=== PATIENT | male | born 1970 | race Caucasian/White ===

== ENCOUNTER 2022-02-07 07:57 | Outpatient (CLI) | payer OTHER ==
[2022-02-07] MEDS ORDERED: Iopamidol 300 61% 100 ML VIAL FS ONE (08:51)
== END 2022-02-07 07:58 | disposition home or self-care (01) ==
LOC: CSHCT 07:57
PROVIDERS: ATTEND Surgery
DX: C20 Malignant neoplasm of rectum (principal)
CPT/HCPCS: 74177; Q9967

== ENCOUNTER 2023-01-17 09:43 | Outpatient (CLI) | payer OTHER ==
[2023-01-17] MEDS ORDERED: Iopamidol 300 61% 100 ML VIAL FS ONE (15:08)
== END 2023-01-17 09:44 | disposition home or self-care (01) ==
LOC: CSHCT 09:43
PROVIDERS: ATTEND Internal Medicine Hematology & Oncology
DX: C20 Malignant neoplasm of rectum (principal); K76.9 Liver disease, unspecified; K63.89 Other specified diseases of intestine; T18.5XXA Foreign body in anus and rectum, initial encounter; R59.1 Generalized enlarged lymph nodes; R19.8 Other specified symptoms and signs involving the digestive system and abdomen
CPT/HCPCS: 71260; 74177; Q9967